=== PATIENT | male | born 1995 | race Caucasian/White ===

== ENCOUNTER 2017-09-27 03:53 | Emergency (ER) | payer BC ==
[~2017-09-27] VITALS: Ht 188 cm; Wt 68.0 kg
--- NOTE | 2017-09-27 04:00 | NUR ---
PATIENT WALKED INTO ER C/O LEFT FLANK PAIN WITH N/V X7HRS. STATES HAS HX OF KIDNEY STONES
[2017-09-27] MEDS ORDERED: [UNRECOGNIZED DRUG - OTHER] (04:07)
[2017-09-27] MEDS ORDERED: ZOFRAN PRN (04:07)
[2017-09-27] MEDS ORDERED: IV NORMAL SALINE 1000 ML BAG IV ONE (04:30)
[2017-09-27] MEDS ORDERED: ONDANSETRON 4 MG/2 ML VIAL IV ONE (04:30)
[2017-09-27 04:43] LABS: BASOPHILS # (AUTO) 0.1 K/uL (0.0-8.0); EOSINOPHILS % (AUTO) 0.1 % (0.0-7.0); HEMATOCRIT 47.6 % (40-50); LYMPHOCYTES # (AUTO) 0.9 K/UL (0.8-4.8); LYMPHOCYTES % (AUTO) 6.8 % (20.5-51.5); MEAN CORPUSCULAR HGB CONC 34 g/dL (32.0-37.0); MEAN CORPUSCULAR VOLUME 89.2 FL (82.0-92.0); MONOCYTES # (AUTO) 0.3 K/UL (0.1-1.30); MONOCYTES % (AUTO) 2.1 % (0.0-11.0); NEUTROPHILS # (AUTO) 12.7 K/UL (1.8-8.9); PLATELET COUNT (AUTO) 247 K/UL (150-450); RED BLOOD CELL COUNT(AUTO) 5.34 MIL/UL (4.7-6.1)
[2017-09-27 04:45] LABS: *BILIRUBIN,URIN NEGATIVE (NEGATIVE); *BLOOD, URINE NEGATIVE (NEGATIVE); *CLARITY,URINE SLIGHTLY CLOUDY (CLEAR); *KETONES,URINE 3+ (NEGATIVE); *PROTEIN,URINE 1+ (NEGATIVE); *UROBILINOGEN,URINE 0.2 E.U./dl (NORMAL); LEUKOCYTE ESTERASE ,URINE NEGATIVE (NEGATIVE); NITRITE, URINE NEGATIVE (NEGATIVE); PH,URINE 8.5 (5.0-8.0); UGLUCOSE TRACE (NEGATIVE)
[2017-09-27] MEDS ORDERED: KETOROLAC TROMETHAMINE 30 MG INJ IVP ONE (04:45)
[2017-09-27] MEDS ORDERED: ONDANSETRON 4 MG/2 ML VIAL ONE (04:51)
[2017-09-27 04:52] LABS: *COLOR,URINE YELLOW (YELLOW)
[2017-09-27 04:54] LABS: BACTERIA,URINE NONE SEEN /HPF (NONE SEEN); MUCUS,URINE MANY /LPF (0-FEW); RBC,URINE 0-3 /HPF (0-3); SQUAMOUS EPITHELIAL CELL,UR FEW /HPF (NONE SEEN); WBC,URINE 0-3 /HPF (0-3)
[2017-09-27 04:55] LABS: POTASSIUM 3.5 mmol/L (3.5-5.1)
[2017-09-27 05:07] LABS: BILIRUBIN,DIRECT 0.1 mg/dL (0.0-0.2); BILIRUBIN,TOTAL 0.5 mg/dL (0.2-1.0); TOTAL PROTEIN, SERUM 7.6 g/dL (6.4-8.2)
--- NOTE | 2017-09-27 05:10 | NUR ---
PATIENT STATES PAIN AND NAUSEA HAS IMPROVED
[2017-09-27] MEDS ORDERED: KETOROLAC TROMETHAMINE 30 MG INJ ONE (05:11)
--- NOTE | 2017-09-27 05:18 | NUR ---
IV removed. Catheter intact and site benign. Pressure and 4x4 gauze applied to site. No bleeding noted.
[2017-09-27 05:22] VITALS: BP 128/82
--- NOTE | 2017-09-27 05:22 | NUR ---
Patient discharged to home in stable conditon WITH GIRLFRIEND TAKING PATIENT HOME. Written and verbal after care instructions given. Patient verbalizes understanding of instructions.
== END 2017-09-27 05:23 | disposition home or self-care (01) ==
LOC: ER 03:56
DX: N20.0 Calculus of kidney (principal); Z87.442 Personal history of urinary calculi; R11.2 Nausea with vomiting, unspecified
CPT/HCPCS: 36415; 83690; 85025; A4663; J1885; J2405; J7030